=== PATIENT | male | born 1950 | race Caucasian/White ===

== ENCOUNTER 2023-05-22 10:52 | Day surgery (SDC) | payer OTHER, MEDICARE ==
[~2023-05-22] VITALS: Ht 185.4 cm; Wt 127.7 kg
[~2023-05-22 10:52] MED LIST: AMLO10TA PO; METF-877 PO; NS 1,000 ML IV ONE; VITMTA PO
[2023-05-22] MEDS ORDERED: LIDOCAINE 2% 100MG/5ML SDV (FOR ANES.) As Ordered ONE (13:07)
[2023-05-22] MEDS ORDERED: propofoL 200 MG/20 ML VIAL As Ordered ONE ×3 (13:07→14:56)
[2023-05-22 15:42] VITALS: BP 130/60; TEMP 97.6; O2SAT 95
== END 2023-05-22 15:44 | disposition home or self-care (01) ==
LOC: M OPP 10:52
PROVIDERS: ATTEND Internal Medicine Gastroenterology
DX: Z12.11 Encounter for screening for malignant neoplasm of colon (principal); D12.0 Benign neoplasm of cecum; D12.2 Benign neoplasm of ascending colon; D12.3 Benign neoplasm of transverse colon; D12.5 Benign neoplasm of sigmoid colon; Z87.891 Personal history of nicotine dependence; E11.9 Type 2 diabetes mellitus without complications; Z79.84 Long term (current) use of oral hypoglycemic drugs; Z79.899 Other long term (current) drug therapy